=== PATIENT | male | born 1940 | race Caucasian/White ===

== ENCOUNTER 2022-07-09 19:07 | Outpatient (CLI) | payer MEDICARE, SELFPAY ==
[2022-07-09 11:54] LABS: Albumin* 4.7 g/dL (3.3-5.0); Chloride* 100 mmol/L (96-114); Sodium* 139 mmol/L (135-149)
[2022-07-09 11:55] LABS: Potassium* 4.2 mmol/L (3.6-5.1)
[2022-07-09 11:57] LABS: Alkaline Phosphatase* 81 U/L (40-150); Aspartate Amino Transferase* 27 U/L (12-35); Bilirubin Total* 2.2 mg/dL (0.1-1.5); Blood Urea Nitrogen* 24 mg/dL (7-30); Carbon Dioxide* 30 mmol/L (20-32); Cholesterol* 143 mg/dL (90-199); Creatinine* 0.9 mg/dL (0.5-1.5); Estimated Glomerular Filt Rate 87 ml/min; Glucose* 99 mg/dL (60-115)
[2022-07-09 11:58] LABS: Alanine Aminotransferase* 21 U/L (4-50); Calcium* 9.7 mg/dL (8.4-10.6); HDL Cholesterol* 41 mg/dL (>=40); LDL Cholesterol Calculated 68 mg/dL (<100); Triglycerides* 172 mg/dL (40-149)
[2022-07-09 12:29] LABS: PSA Diagnostic* < 0.06 ng/mL (0.10-4.00)
== END 2022-07-09 19:08 | disposition home or self-care (01) ==
PROVIDERS: PCP Family Medicine; Visit Provider Family Medicine
DX: Z00.00 Encounter for general adult medical examination without abnormal findings (principal); C61 Malignant neoplasm of prostate; E78.5 Hyperlipidemia, unspecified; I10 Essential (primary) hypertension; Z12.5 Encounter for screening for malignant neoplasm of prostate
CPT/HCPCS: 80053; 80061; 84153

== ENCOUNTER 2023-07-15 08:50 | Outpatient (CLI) | payer MEDICARE, SELFPAY | END 2023-07-15 08:51 | disposition home or self-care (01) | LOC: NFLDREF 07-18 11:11 | PROVIDERS: PCP Family Medicine; Referring Provider Family Medicine; Visit Provider Family Medicine | DX: Z00.00 Encounter for general adult medical examination without abnormal findings (principal); E78.5 Hyperlipidemia, unspecified; C61 Malignant neoplasm of prostate; I10 Essential (primary) hypertension; G25.81 Restless legs syndrome; F32.9 Major depressive disorder, single episode, unspecified; N52.9 Male erectile dysfunction, unspecified; Z12.5 Encounter for screening for malignant neoplasm of prostate | CPT/HCPCS: 80053; 80061; 84153 ==

== ENCOUNTER 2024-04-22 09:02 | Outpatient (CLI) | payer MEDICARE, SELFPAY ==
--- OUTSIDE RECORDS SUMMARY | 2024-04-22 15:24 | XMS_ITS | Encounter Summary ---
Author Organization [facility] Address [address] [place] [address] Care Team Providers Care Personnel Records Clerk Name Role Phone Isac Milton MD Primary Care Provider [phone] Stone Pryor MD Unavailable [phone] Rashida Beyer PA-C Unavailable Stone Pryor MD Unavailable [phone] Reason for Visit * Reason Onset Date Comments Call Back 07/07/2020 blood thinner Encounter Details Date Type Department Care Team (Late st Contact Info) Description 07/07/2020 Telephone [facility] [address] 4th [place] [address] Stone Pryor MD [facility] [address] [place] [address] [facility] [place] [place] [address] Call Back (blood thinner) Social History Tobacco Use Types Packs/Day Years Used Date Smoking Tobacco: Former Cigarettes 1 10 0 09/23/1959 - 09/23/1969 Smokeless Tobacco: Never Alcohol Use Standard Drinks/Week Comments Yes 0 (1 standard drink = 0.6 oz pure alcohol) 1 cocktail a day, has hardly had anything to drink since his knee surgery. PHQ-2 Answer Date Recorded PHQ-2 Score 0 04/29/2019 Sex and Gender Information Value Date Recorded Sex Assigned at Not on file Gender Identity Not on file Sexual Orientation Not on file COVID-19 Exposure Response Date Recorded In the last month, have you been in contact with someone who was confirmed or suspected to have Coronavirus / COVID-19? No / Unsure 07/08/2020 9:29 AM CDT documented as of this encounter Miscellaneous Notes * Telephone Encounter - Kiarra Sorto LPN - 07/08/2020 9:40 AM CDT Called and told pt to contact his primary care or hematology. Kiarra * Telephone Encounter - Flori Gonzalez - 07/07/2020 5:07 PM CDT Health Call Center Phone Message May a detailed message be left on voicemail: yes Reason for Call: Other: Patient is calling because the prescription for his blood thinner costs 500dollars. If you could give the patient a call back to figure out another solution. Action Taken: Other: ORTHO Travel Screening: Not Applicable documented in this encounter Plan of Treatment Not on file documented as of this encounter Visit Diagnoses Not on filedocumented in this encounter Additional Health Concerns Infection Onset Date Last Indicated Resolved Time Rule Out COVID-19 07/08/2020 07/08/2020 07/08/2020 11:31 PM CDT documented as of this encounter Care Teams Personnel Records Clerk Relationship Specialty Start Date End Date Isac Milton MD PCP - General Family Practice 08/23/17 Stone Pryor MD [facility] [address] [facility] [place] [address] [place] [address] Assigned Musculoskeletal Provider 07/15/20 04/15/21 Rashida Beyer PA-C [address] [place], [place] [address] Assigned Musculoskeletal Provider 04/16/21 01/27/22 Stone Pryor MD [facility] [address] [facility] [place] [address] Assigned Musculoskeletal Provider 01/28/22 02/23/22 documented as of this encounter
--- OUTSIDE RECORDS SUMMARY | 2024-04-22 15:24 | XMS_ITS | Encounter Summary ---
Author Organization [place] Address [address] [place] [address] Care Team Providers Care Client Service Representative Name Role Phone Isac Milton MD Primary Care Provider Encounter Details Date Type Department Care Team (Late st Contact Info) Description 07/29/2023 [facility] [address] [place] [phone] [facility] Social History Tobacco Use Types Packs/Day Years Used Date Smoking Tobacco: Former Cigarettes 1 10 0 09/23/1959 - 09/23/1969 Smokeless Tobacco: Never Alcohol Use Standard Drinks/Week Comments Yes 0 (1 standard drink = 0.6 oz pure alcohol) 1 cocktail a day, has hardly had anything to drink since his knee surgery. PHQ-2 Answer Date Recorded PHQ-2 Score 2 08/24/2020 Adolescent Education Answer Date Record ed Getting School Help Needed Not on file 06/30 Sex and Gender Information Value Date Recorded Sex Assigned at Not on file Gender Identity Not on file Sexual Orientation Not on file documented as of this encounter Plan of Treatment Not on file documented as of this encounter Visit Diagnoses Not on filedocumented in this encounter Care Teams Client Service Representative Relationship Specialty Start Date End Date Isac Milton MD PCP - General Family Practice 08/23/17 documented as of this encounter
--- OUTSIDE RECORDS SUMMARY | 2024-04-22 15:24 | XMS_ITS | Clinical Summary ---
Author Organization [employer] [facility] Address [place], [place] [address] Care Team Providers Care Methods Analyst Name Role Phone Casey Hare MD Primary Care Provider Allergies Active Allergy Reactions Criticality Noted Date Comments Unknown-Follow Up Needed (In clude Details In Comments) 09/12/2009 hayfever Medications Medication Sig Dispensed Refills Start Date End Date Status metoprolol (LOPRESSOR) 50 mg tablet Take 50 mg by mouth once daily. In the morning Active metoprolol (LOPRESSOR) 100 mg tablet Take 100 mg by mouth once daily in the evening. Active lisinopril (PRINIVIL; ZESTRIL) 40 mg tablet Take 40 mg by mouth once daily. Active sertraline (ZOLOFT) 50 mg tablet Take 50 mg by mouth once daily. Active warfarin (COUMADIN) 2 mg tablet Take 2 mg by mouth. Active multivitamin (MVI) tablet Take 1 tablet by mouth once daily. 0 08/20/2017 Active calcium carbonate-mag hydroxid 1,000-200 mg chew Take by mouth. 0 08/20/2017 Active ferrous sulfate, 65 mg elemental, (IRON, FERROUS SULFATE,) tablet Take 1 tablet by mouth once daily with a meal. 0 08/20/2017 Active Active Problems Problem Noted Date Diagnosed Date Prostate cancer 09/12/2009 S/P prostatectomy 09/12/2009 Overview: 09/12/09. HTN (hypertension) 09/12/2009 Anxiety State, Unspecified 09/12/2009 Back pain 09/12/2009 Immunizations Name Administration Dates Next Due Pneumococcal Poly,23-Valent (Pneumovax) 09/14/20 09 Family History Medical History Relation Name Comments Heart Disease Father Relation Name Status Comments Father Social History Tobacco Use Types Packs/Day Years Used Date Smoking Tobacco: Former Smokeless Tobacco: Never Tobacco Cessation:Counseling Given: Yes Comments:Smoked many years ago for 5-10 yrs (<1ppd) Alcohol Use Standard Drinks/Week Comments Yes 0 (1 standard drink = 0.6 oz pur e alcohol) 1-2 beers, 5 days a week Sex and Gender Information Value Date Recorded Sex Assigned at Not on file Gender Identity Not on file Sexual Orientation Not on file Obstetrics History Last Filed Vital Signs Vital Sign [place] Time Taken Comments Blood Pressure 143/81 08/20/2017 2:15 PM AUTOMATIC PRESSER Pulse 73 08/20/2017 2:15 PM AUTOMATIC PRESSER Temperature 36.6 ??C (97.8 ??F) 08/20/2017 2:15 PM CS T Respiratory Rate 16 09/14/2009 3:00 PM AUTOMATIC PRESSER Oxygen Saturation 98% 08/20/2017 2:15 PM AUTOMATIC PRESSER Inhaled Oxygen Concentration - - Weight 73.5 kg (162 lb) 08/20/2017 2:15 PM AUTOMATIC PRESSER Height 182 cm (5' 11.65) 08/20/2017 2:15 PM AUTOMATIC PRESSER Body Mass Index 22.18 08/20/2017 2:15 PM AUTOMATIC PRESSER Plan of Treatment Health Maintenance Due Date Last Done Comments Tdap 1953 Depression screening for age 12+ 1954 Tetanus booster 1962 Zoster (shingles) series for age 50+ (1 of 2) 07/23/19 92 Pneumococcal series for age 65+ (2 of 2 - PCV) 010 09/14/2009 BMI (ht and wt on same day) for age 18+ 08/20/2018 1 10/20/2016 COVID-19 vaccine series (2022-24 season) 3 Influenza for age 65+ 05/24/2024 Care Teams Methods Analyst Relationship Specialty Start Date End Date Casey Hare MD PCP - General 09/09/09
--- OUTSIDE RECORDS SUMMARY | 2024-04-22 15:24 | XMS_ITS | Encounter Summary ---
Author Organization [facility] Address [address] [place] [address] Care Team Providers Care Dry Roller Name Role Phone Isac Milton MD Primary Care Provider Stone Pryor MD Unavailable [phone] Rashida Beyer PA-C Unavailable Stone Pryor MD Unavailable [phone] Encounter Details Date Type Department Care Team (Late st Contact Info) Description 06/13/2020 [facility] Medical Advice [facility] [address] [facility] [address] [place] [address] Stone Pryor MD [facility] [address] [facility] [address] [address] [place] [id number] Social History Tobacco Use Types Packs/Day Years [...] documented as of this encounter Care Teams Dry Roller Relationship Specialty Start Date End Date Isac Milton MD PCP - General Family Practice 08/23/17 Stone Pryor MD [facility] [address] [facility] [place] [address] Assigned Musculoskeletal Provider 07/15/20 04/15/21 Rashida Beyer PA-C [address] [place] [address] [place] [address] Assigned Musculoskeletal Provider 04/16/21 01/27/22 Stone Pryor MD [facility] [address] [facility] [place] [address] Assigned Musculoskeletal Provider 01/28/22 02/23/22 documented as of this encounter
--- OUTSIDE RECORDS SUMMARY | 2024-04-22 15:24 | XMS_ITS | Referral Summary ---
Author Organization [facility] Address [address] [place] [address] Care Team Providers Care Seed Cleaning Machine Operator Name Role Phone Isac Milton MD Primary Care Provider [phone] Allergies Active Allergy Reactions Criticality Noted Date Comments Pollen Extract 07/07/2020 Medications Medication Sig Dispensed Refills Start Date End Date Status multivitamin, therapeutic with minerals (MULTI-VITAMIN) TABS tablet Take 1 tablet by mouth daily Active calcium-vitamin D (CALTRATE) 600-400 MG-UNIT per tablet Take 1 tablet by mouth daily 60 tablet 09/17/2017 Active metoprolol (TOPROL-XL) 50 MG 24 hr tablet Take 1 tablet (50 mg) by mouth daily 30 tablet 1 09/17/2017 Active melatonin 10 MG TABS tablet Take 1 tablet (10 mg) by mouth nightly as needed for sleep 09/17/2017 Active lisinopril (PRINIVIL/ZESTRIL) 40 MG tablet Take 40 mg by mouth daily Active simvastatin (ZOCOR) 20 MG tablet Take 20 mg by mouth At Bedtime Active pramipexole (MIRAPEX) 0.25 MG tablet Take 0.25 mg by mouth At Bedtime Active acetaminophen (TYLENOL) 325 MG tabletIndications:Inf ected surgical wound Take 2 tablets (650 mg) by mouth every 4 hours as needed for other 1 Bottle 07/14/2020 Active polyethylene glycol (MIRALAX) 17 g packetIndications:Ibeth denice localized osteoarthritis of left knee Take 17 g by mouth daily 7 packet 07/12/2020 Active senna-docusate (SENOKOT-S/PERICOLACE ) 8.6-50 MG tabletIndications:Ibeth galdamez localized osteoarthritis of left knee Take 1 tablet by mouth 2 times daily 30 tablet 07/12/2020 Active sertraline (ZOLOFT) 50 MG tablet Take 50 mg by mouth daily Active sildenafil (REVATIO) 20 MG tablet Take 2-5 tablets by mouth as needed. Take 30 to 60 minutes prior to sexual activity/ Active metroNIDAZOLE (METROGEL) 0.75 % external gel Apply to face twice daily Active HYDROmorphone (DILAUDID) 2 MG tabletIndications:Inf ected surgical wound Take 1 tablet (2 mg) by mouth every 4 hours as needed for moderate to severe pain 40 tablet 07/13/2020 Active Additional Information Patient not taking.Reported on 07/29/2020 ondansetron (ZOFRAN) 4 MG tabletIndications:Inf ected surgical wound Take 1 tablet (4 mg) by mouth every 6 hours as needed for nausea 10 tablet 1 07/13/2020 Active omeprazole (PRILOSEC OTC) 20 MG EC tabletIndications:Dys pepsia Take 1 tablet (20 mg) by mouth daily as needed (indigestion, heartburn) 15 tablet 1 07/13/2020 Active warfarin ANTICOAGULANT (COUMADIN) 5 MG tabletIndications:Ibeth galdamez localized osteoarthritis of left knee Take as directed by primary care, based on next INR on 07/15/2020. Goal INR is 2-3 for one month for DVT prophylaxis. INR on 07/13/20 was 2.5 after receiving 5 mg daily for 2 doses (07/11 and 07/12). 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.) 09/17/2017 Cervical disc disease Social History Tobacco Use Types Packs/Day Years [...] on file Sexual Orientation Not on file Last Filed Vital Signs Vital Sign [place] Time Taken Comments Blood Pressure 146/78 07/13/2020 8:44 AM CDT Pulse 67 07/13/2020 8:44 AM CDT Temperature 36.8 ??C (98.3 ??F) 07/13/2020 7:15 AM CD T Respiratory Rate 16 07/13/2020 7:15 AM CDT Oxygen Saturation 96% 07/13/2020 7:15 AM CDT Inhaled Oxygen Concentration - - Weight 76.8 kg (169 lb 5 oz) 07/11/2020 10:05 AM CDT Height 182.9 cm (6') 07/11/2020 10:05 AM CDT Body Mass Index 22.96 07/11/2020 10:05 AM CDT Plan of Treatment Not on file Medical Devices Implanted Type Area Mounting Machine Operator Device Identifier Shelf Expiration Date Model / Serial / Lot Bone Cement Simplex Full Dose 6191-1-001 Implanted:Qty: 1 on 07/11/2020 by Stone Pryor MD at [facility] Cement, Bone Left: Knee [employer] 08/22/2021 6191-1-00 1 / / [id number] Bone Cement Simplex Full Dose 6191-1-001 Implanted:Qty: 1 on 07/11/2020 by Stone Pryor MD at [facility] Cement, Bone Left: Knee [employer] 04/22/2022 6191-1-00 1 / / [id number] Imp Patella Zim Knee All Leona 38mm [id number] Implanted:Qty: 1 on 07/11/2020 by Stone Pryor MD at [facility] Total Joint Component /Insert Left: Knee [employer] [id number] 01/21/2028 42-5400-0 00-38 / / [id number] Imp Comp Fem Zim Psn Post Stb Std Sz 11 Lt [id number] Implanted:Qty: 1 on 07/11/2020 by Stone Pryor MD at [facility] Total Joint Component /Insert Left: Knee [employer] [id number] 11/20/2029 42-5006-0 70- [id number] Persona Natural Tibia, 5 Degree Stemmed, Left Size J Implanted:Qty: 1 on 07/11/2020 by Stone Pryor MD at [facility] Left: Knee [employer] [id number] 10/23/2026 42-5320-0 88- / [id number] Persona Articular Surface Ps, Left 11mm Height Implanted:Qty: 1 on 07/11/2020 by Stone Pryor MD at [facility] Left: Knee [employer] [id number] 2022 42-5114-0 11 / [id number] Advance Directives For more information, please contact: [phone] Documents on File Type Date Recorded Patient Talent Manager Expl anation Advance Directives and Living Will 09/24/2017 10:24 AM Health Care Directiv e 01-12-2013 * Full Code (Latest Code Status on File) Date Activated Date Inactivated Comments 07/12/2020 6:02 AM 07/13/2020 5:41 PM All basic and advanced life-sustaining interventions are performed as appropriate Question Answer Comments Code status determined by: Discussion with patie nt/ legal decision maker * Full Code Date Activated Date Inactivated Comments 07/11/2020 4:55 PM 07/12/2020 6:02 AM All basic and advanced life-sustaining interventions are performed as appropriate Question Answer Comments Code status determined by: Unable to det ermine; FULL CODE until documents or legal decision maker available Care Teams Seed Cleaning Machine Operator Relationship Specialty Start Date End Date Isac Milton MD PCP - General Family Practice 08/23/17
--- OUTSIDE RECORDS SUMMARY | 2024-04-22 15:24 | XMS_ITS | Encounter Summary ---
Author Organization [facility] [facility] Address [address] [place] [address]. [place] [address] Care Team Providers Care Poly Operator Name Role Phone Isac Milton MD Primary Care Provider [phone] Stone Pryor MD Unavailable [phone] Rashida Beyer PA-C Unavailable Stone Pryor MD Unavailable [phone] Encounter Details Date Type Department Care Team (Late st Contact Info) Description 07/06/2020 [facility] [place] [facility] [address] [place] [address] Larisa Parrish RN Social History Tobacco Use Types Packs/Day Years [...] AM CDT documented as of this encounter Plan of Treatment Not on file documented as of this encounter Visit Diagnoses Not on filedocumented in this encounter Additional Health Concerns Infection Onset Date Last Indicated Resolved Time Rule Out COVID-19 07/08/2020 07/08/2020 07/08/2020 11:31 PM CDT documented as of this encounter Care Teams Poly Operator Relationship Specialty Start Date End Date Isac Milton MD PCP - General Family Practice 08/23/17 Stone Pryor MD [facility] [address] [place] [address] Assigned Musculoskeletal Provider 07/15/20 04/15/21 Rashida Beyer PA-C [facility] [address] Assigned Musculoskeletal Provider 04/16/21 01/27/22 Stone Pryor MD [facility] [address] [place] [address] Assigned Musculoskeletal Provider 01/28/22 02/23/22 documented as of this encounter
--- OUTSIDE RECORDS SUMMARY | 2024-04-22 15:24 | XMS_ITS | Clinical Summary ---
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.) 09/17/2017 Cervical disc disease Family History Medical History Relation Comments Heart Disease Brother 1 Dementia Brother 2 Vascular Disease Father Venous Disease Father Parkinsonism Mother Cerebrovascular Disease Sister 1 Cerebral aneurysm Dementia Sister 2 Relation Status Comments Brother 1 Alive Brother 2 Alive Father Mother Sister 1 Alive Sister 2 Alive Social History Tobacco Use Types Packs/Day Years [...] on file Medical Devices Implanted Type Area Pants Busheler Device Identifier Shelf Expiration Date Model / Serial / Lot Bone Cement Simplex Full Dose 6191-1-001 Implanted:Qty: 1 on 07/11/2020 by Stone Pryor MD at [facility] Cement, Bone Left: Knee [employer] 08/22/2021 6191-1-00 / / [id number] Bone Cement Simplex Full Dose 6191-1-001 Implanted:Qty: 1 on 07/11/2020 by Stone Pryor MD at [facility] Cement, Bone Left: Knee [employer] 04/22/2022 6191-1-00 1 / / [id number] Imp Patella Zim Knee All Leona 38mm [id number] Implanted:Qty: 1 on 07/11/2020 by Stone Pryor MD at [facility] Total Joint Component /Insert Left: Knee [employer] [id number] 01/21/2028 42-5400-0 00- / [id number] Imp Comp Fem Zim Psn Post Stb Std Sz 11 Lt [id number] Implanted:Qty: 1 on 07/11/2020 by Stone Pryor MD at [facility] Total Joint Component /Insert Left: Knee [employer] [id number] 11/20/2029 42-5006-0 70- / [id number] Persona Natural Tibia, 5 Degree Stemmed, Left Size J Implanted:Qty: 1 on 07/11/2020 by Stone Pryor MD at [facility] Left: Knee [employer] [id number] 10/23/2026 42-5320-0 88- [id number] Persona Articular Surface Ps, Left 11mm Height Implanted:Qty: 1 on 07/11/2020 by Stone Pryor MD at [facility] Left: Knee [employer] [id number] 2022 42-5114-0 08-03 [id number] Advance Directives For more information, please contact: [phone] Documents on File Type Date Recorded Patient Processing Rep Expl anation Advance Directives and Living Will [...] or legal decision maker available Care Teams Sheep Sorter Relationship Specialty Start Date End Date Isac Milton MD PCP - General Family Practice 08/23/17
== END 2024-04-22 09:03 | disposition home or self-care (01) ==
LOC: NFLDREF 15:22
PROVIDERS: PCP Family Medicine; Referring Provider Family Medicine; Visit Provider Family Medicine
DX: G25.81 Restless legs syndrome (principal)
CPT/HCPCS: 82728

== ENCOUNTER 2024-07-15 08:49 | Outpatient (CLI) | payer MEDICARE, SELFPAY ==
--- OUTSIDE RECORDS SUMMARY | 2024-07-16 11:38 | XMS_ITS | Encounter Summary ---
Author Organization [facility] Address [address] [place] [address] Care Team Providers Care Arts And Crafts Teacher Name Role Phone Isac Milton MD Primary Care Provider Stone Pryor MD Unavailable [phone] Rashida Beyer PA-C Unavailable Stone Pryor MD Unavailable [phone] Reason for Visit * Reason Onset Date Comments Call Back 07/07/2020 blood thinner Encounter Details Date Type Department Care Team (Late st Contact Info) Description 07/07/2020 Telephone [facility] [place] [address] [facility] 4th [place] [address] Stone Pryor MD [facility] [address] [place] [address] [address] [place] [address] Call Back (blood thinner) Social History Tobacco [...] Recorded Sex Assigned at Not on file Legal Sex Male 4:04 AM OUTREACH SPECIALIST Gender Identity Not on file Sexual Orientation [...] documented as of this encounter Care Teams Arts And Crafts Teacher Relationship Specialty Start Date End Date Isac Milton MD PCP - General Family Practice 08/23/17 Stone Pryor MD [facility] [address] [facility] [place] [address] Assigned Musculoskeletal Provider 07/15/20 04/15/21 Rashida Beyer PA-C [address] [place] [address] Assigned Musculoskeletal Provider 04/16/21 01/27/22 Stone Pryor MD [facility] [address] [facility] [place] [address] Assigned Musculoskeletal Provider 01/28/22 02/23/22 documented as of this encounter
--- OUTSIDE RECORDS SUMMARY | 2024-07-16 11:38 | XMS_ITS | Encounter Summary ---
Author Organization [facility] Address [address] [place] [address] Care Team Providers Care Crystal Grinder Name Role Phone Isac Milton MD Primary Care Provider [phone] Encounter Details Date Type Department Care Team (Late st Contact Info) Description 07/29/2023 [facility] Medical Advice [address] [place] [id number] [facility] Social History Tobacco Use Types Packs/Day Years [...] on file Legal Sex Male 4:04 AM SECURED ENTRANCE MONITOR Gender Identity Not on file Sexual Orientation Not on file documented as of this encounter Plan of Treatment Not on file documented as of this encounter Visit Diagnoses Not on filedocumented in this encounter Care Teams Crystal Grinder Relationship Specialty Start Date End Date Isac Milton MD PCP - General Family Practice 08/23/17 documented as of this encounter
--- OUTSIDE RECORDS SUMMARY | 2024-07-16 11:38 | XMS_ITS | Clinical Summary ---
Author Organization [facility] Address [address] [place] [address] Care Team Providers Care Secretary Office Clerk Name Role Phone Isac Milton MD Primary Care Provider [phone] Allergies Active Allergy Reactions Criticality Noted Date Comments Pollen Extract 07/07/2020 Medications multivitamin, therapeutic with minerals (MULTI-VITAMIN) TABS tablet Take 1 tablet by mouth daily Active calcium-vitamin D (CALTRATE) 600-400 MG-UNIT per tablet Take 1 tablet by mouth daily 60 tablet 09/17/20 17 Active metoprolol (TOPROL-XL) 50 MG 24 hr tablet Take 1 tablet (50 mg) by mouth daily 30 tablet 1 09/17/20 17 Active melatonin 10 MG TABS tablet Take 1 tablet (10 mg) by mouth nightly as needed for sleep 09/17/20 17 Active lisinopril (PRINIVIL/ZESTRIL) 40 MG tablet Take 40 mg by mouth daily Active simvastatin (ZOCOR) 20 MG tablet Take 20 mg by mouth At Bedtime Active pramipexole (MIRAPEX) 0.25 MG tablet Take 0.25 mg by mouth At Bedtime Active acetaminophen (TYLENOL) 325 MG tabletIndications: Infected surgical wound Take 2 tablets (650 mg) by mouth every 4 hours as needed for other 1 Bottle 07/14/20 20 Active polyethylene glycol (MIRALAX) 17 g packetIndications: Primary localized osteoarthritis of left knee Take 17 g by mouth daily 7 packet 07/12/20 20 Active senna-docusate (SENOKOT-S/PERICOL ARLYN) 8.6-50 MG tabletIndications: Primary localized osteoarthritis of left knee Take 1 tablet by mouth 2 times daily 30 tablet 07/12/20 20 Active sertraline (ZOLOFT) 50 MG tablet Take 50 mg by mouth daily Active sildenafil (REVATIO) 20 MG tablet Take 2-5 tablets by mouth as needed. Take 30 to 60 minutes prior to sexual activity/ Active metroNIDAZOLE (METROGEL) 0.75 % external gel Apply to face twice daily Active HYDROmorphone (DILAUDID) 2 MG tabletIndications: Infected surgical wound Take 1 tablet (2 mg) by mouth every 4 hours as needed for moderate to severe pain 40 tablet 07/13/20 20 Active Additional Information Patient not taking.Reported on 07/29/2020 ondansetron (ZOFRAN) 4 MG tabletIndications: Infected surgical wound Take 1 tablet (4 mg) by mouth every 6 hours as needed for nausea 10 tablet 1 07/13/20 20 Active omeprazole (PRILOSEC OTC) 20 MG EC tabletIndications: Dyspepsia Take 1 tablet (20 mg) by mouth daily as needed (indigestion, heartburn) 15 tablet 1 07/13/20 20 Active warfarin ANTICOAGULANT (COUMADIN) 5 MG tabletIndications: Primary localized osteoarthritis of left knee Take as directed by primary care, based on next INR on 07/15/2020. Goal INR is 2-3 for one month for DVT prophylaxis. INR on 07/13/20 was 2.5 after receiving 5 mg daily for 2 doses (07/11 and 07/12). 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 Gender Identity Not on file Sexual Orientation [...] on file Medical Devices Implanted Type Area Cannon Crewmember Device Identifier Shelf Expiration Date Model / Serial / Lot Bone Cement Simplex Full Dose 6191-1-001 Implanted:Qty: 1 on 07/11/2020 by Stone Pryor MD at [facility] Cement, Bone Left: Knee [employer] 08/22/2021 6191-1-00 1 / / [id number] Bone Cement Simplex Full Dose 6191-1-001 Implanted:Qty: 1 on 07/11/2020 by Stone Pryor MD at [facility] Cement, Bone Left: Knee [employer] 04/22/2022 6191-1-00 1 / / [id number] Imp Patella Zim Knee All Leona 38mm [id number] Implanted:Qty: 1 on 07/11/2020 by Stone Pryor MD at [facility] Total Joint Component /Insert Left: Knee [employer] [id number] 01/21/2028 42-5400-0 00-38 / / [id number] Imp Comp Fem Zim Psn Post Stb Std Sz 11 Lt [id number] Implanted:Qty: 1 on 07/11/2020 by Stone Pryor MD at [facility] Total Joint Component /Insert Left: Knee [employer] [id number] 11/20/2029 42-5006-0 70- / / [id number] Persona Natural Tibia, 5 Degree Stemmed, Left Size J Implanted:Qty: 1 on 07/11/2020 by Stone Pryor MD at [facility] Left: Knee [employer] [id number] 10/23/2026 42-5320-0 88- / / [id number] Persona Articular Surface Ps, Left 11mm Height Implanted:Qty: 1 on 07/11/2020 by Stone Pryor MD at [facility] Left: Knee [employer] [id number] 2022 42-5114-0 08-03 / [id number] Insurance [facility] MEDICARE ADVANTAGE BCBS MEDICARE ADVANTAGE Advance Directives For more information, please contact: [phone] Documents on File Type Date Recorded Patient It Program Engagement Director Expl anation Advance Directives and Living Will 09/24/2017 10:24 AM [facility] Direct e 01-12-2013 * Full Code (Latest Code [...] or legal decision maker available Care Teams Secretary Office Clerk Relationship Specialty Start Date End Date Isac Milton MD PCP - General Family Practice 08/23/17
--- OUTSIDE RECORDS SUMMARY | 2024-07-16 11:38 | XMS_ITS | Encounter Summary ---
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 Gender Identity Not on file Sexual Orientation [...] documented as of this encounter Care Teams Shipping Support Clerk Relationship Specialty Start Date End Date Isac Milton MD PCP - General Family Practice 08/23/17 Stone Pryor MD [facility] [address] [place] [address] Assigned Musculoskeletal Provider 07/15/20 04/15/21 Rashida Beyer PA-C [facility] [place] [address] Assigned Musculoskeletal Provider 04/16/21 01/27/22 Stone Pryor MD [facility] [address] [place] [address] Assigned Musculoskeletal Provider 01/28/22 02/23/22 documented as of this encounter
--- OUTSIDE RECORDS SUMMARY | 2024-07-16 11:38 | XMS_ITS | Referral Summary ---
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 Gender Identity Not on file Sexual Orientation [...] on file Medical Devices Implanted Type Area Buffing Line Set Up Worker Device Identifier Shelf Expiration Date Model / Serial / Lot Bone Cement Simplex Full Dose 6191-1-001 Implanted:Qty: 1 on 07/11/2020 by Stone Pryor MD at [facility] Cement, Bone Left: Knee [employer] 08/22/2021 6191--00 / / [id number] Bone Cement Simplex Full Dose 6191-1-001 Implanted:Qty: 1 on 07/11/2020 by Stone Pryor MD at [facility] Cement, Bone Left: Knee [employer] 04/22/2022 6191--00 / / [id number] Imp Patella Zim Knee All Leona 38mm [id number] Implanted:Qty: 1 on 07/11/2020 by Stone Pryor MD at [facility] Total Joint Component /Insert Left: Knee [employer] [id number] 01/21/2028 42-5400-0 00-38 / / [id number] Imp Comp Fem Zim Psn Post Stb Std Sz 11 Lt [id number] Implanted:Qty: 1 on 07/11/2020 by Stone Pryor MD at [facility] Total Joint Component /Insert Left: Knee [employer] [id number] 11/20/2029 42-5006-0 70- / / [id number] Persona Natural Tibia, 5 Degree Stemmed, Left Size J Implanted:Qty: 1 on 07/11/2020 by Stone Pryor MD at [facility] Left: Knee [employer] [id number] 10/23/2026 42-5320-0 88- / [id number] Persona Articular Surface Ps, Left 11mm Height Implanted:Qty: 1 on 07/11/2020 by Stone Pryor MD at [facility] Left: Knee [employer] [id number] 2022 42-5114-0 11- / [id number] Insurance BCBS MEDICARE ADVANTAGE [facility] MEDICARE ADVANTAGE Advance Directives For more information, please contact: [phone] Documents on File Type Date Recorded Patient Life Support Technician Expl anation Advance Directives and Living Will 09/24/2017 10:24 AM [facility] Care Directiv e 01-12-2013 * Full Code [...] or legal decision maker available Care Teams Seismograph Shooter Relationship Specialty Start Date End Date Isac Milton MD PCP - General Family Practice 08/23/17
--- OUTSIDE RECORDS SUMMARY | 2024-07-16 11:39 | XMS_ITS | Encounter Summary ---
Author Organization [facility] Address [address] [place] [address] Care Team Providers Care Hyperbaric Technologist Name Role Phone Isac Milton MD Primary Care Provider [phone] Stone Pryor MD Unavailable [phone] Rashida Beyer PA-C Unavailable Stone Pryor MD Unavailable [phone] Encounter Details Date Type Department Care Team (Late st Contact Info) Description 06/13/2020 [facility] Medical Advice 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 Gender Identity Not on file Sexual Orientation Not on file documented as of this encounter Plan of Treatment Not on file documented as of this encounter Visit Diagnoses Not on filedocumented in this encounter Additional Health Concerns Infection Onset Date Last Indicated Resolved Time Rule Out COVID-19 07/08/2020 07/08/2020 07/08/2020 11:31 PM CDT documented as of this encounter Care Teams Hyperbaric Technologist Relationship Specialty Start Date End Date Isac Milton MD PCP - General Family Practice 08/23/17 Stone Pryor MD [facility] [address] [place] [address] Assigned Musculoskeletal Provider 07/15/20 04/15/21 Rashida Beyer PA-C [facility] [place] [address] Assigned Musculoskeletal Provider 04/16/21 01/27/22 Stone Pryor MD [facility] [address] [facility] [place] [address] Assigned Musculoskeletal Provider 01/28/22 02/23/22 documented as of this encounter
--- OUTSIDE RECORDS SUMMARY | 2024-07-16 11:39 | XMS_ITS | Clinical Summary ---
Author Organization [facility] Address [place], [place] [address] Care Team Providers Care School Laboratory Technician Name Role Phone Casey Hare MD Primary Care Provider [phone] Allergies Active Allergy Reactions Criticality Noted Date [...] Date Prostate cancer 09/12/2009 S/P prostatectomy 09/12/2009 Overview (09/12/2009): 09/12/09. HTN (hypertension) 09/12/2009 Anxiety State, Unspecified [...] Comments Blood Pressure 143/81 08/20/2017 2:15 PM ROOM SERVICE FOOD SERVICE ATTENDANT Pulse 73 08/20/2017 2:15 PM ROOM SERVICE FOOD SERVICE ATTENDANT Temperature 36.6 ??C (97.8 ??F) 08/20/2017 2:15 PM CS T Respiratory Rate 16 09/14/2009 3:00 PM ROOM SERVICE FOOD SERVICE ATTENDANT Oxygen Saturation 98% 08/20/2017 2:15 PM ROOM SERVICE FOOD SERVICE ATTENDANT Inhaled Oxygen Concentration - - Weight 73.5 kg (162 lb) 08/20/2017 2:15 PM ROOM SERVICE FOOD SERVICE ATTENDANT Height 182 cm (5' 11.65) 08/20/2017 2:15 PM ROOM SERVICE FOOD SERVICE ATTENDANT Body Mass Index 22.18 08/20/2017 2:15 PM ROOM SERVICE FOOD SERVICE ATTENDANT Plan of Treatment Health Maintenance Due Date Last Done Comments Tdap 1951 Depression screening for age 12+ 1954 Tetanus booster 1962 Zoster (shingles) series for age 50+ (1 of 2) 07/23/19 92 Pneumococcal series for age 65+ (2 of 2 - PCV) 010 09/14/2009 RSV vaccine for adults or pr egnancy (1 - 1-dose 75+ series) 2017 BMI (ht and wt on same day) for age 18+ 08/20/2018 1 10/20/2016 COVID-19 vaccine series (2023- season) Influenza for age 65+ 05/24/2024 Care Teams School Laboratory Technician Relationship Specialty Start Date End Date Casey Hare MD PCP - General 09/09/09
== END 2024-07-15 08:50 | disposition home or self-care (01) ==
LOC: NFLDREF 07-16 11:36
PROVIDERS: PCP Family Medicine; Referring Provider Family Medicine; Visit Provider Family Medicine
DX: E78.5 Hyperlipidemia, unspecified (principal); I10 Essential (primary) hypertension; Z12.5 Encounter for screening for malignant neoplasm of prostate
CPT/HCPCS: 80053; 80061; G0103

== ENCOUNTER 2024-12-01 10:55 | Outpatient (CLI) | payer MEDICARE, SELFPAY | END 2024-12-01 10:56 | disposition home or self-care (01) | LOC: NFLDREF 10:56 | PROVIDERS: PCP Family Medicine; Visit Provider Family Medicine | DX: I10 Essential (primary) hypertension (principal) | CPT/HCPCS: 80048 ==

== ENCOUNTER 2025-07-19 09:28 | Outpatient (CLI) | payer MEDICARE, SELFPAY | END 2025-07-19 09:29 | disposition home or self-care (01) | LOC: NFLDREF 07-20 18:36 | PROVIDERS: PCP Family Medicine; Referring Provider Family Medicine; Visit Provider Family Medicine | DX: E78.5 Hyperlipidemia, unspecified (principal); C61 Malignant neoplasm of prostate | CPT/HCPCS: 80053; 80061; G0103 ==